=== PATIENT | female | born 1945 | race Caucasian/White ===

== ENCOUNTER 2019-08-08 08:59 | Outpatient (CLI) | payer MEDICARE ==
--- NOTE | 2019-08-08 11:38 | Diagnostic Imaging Report ---
PATIENT MR#: [id number] PATIENT PATIENT NAME: SUMAYA RUGGIERO DATE OF : 1945 REFERRING PHYSICIAN: Tonio Kapadia EXAM DATE: 08/08/2019 ACCESSION NUMBER: [id number] EXAM DESCRIPTION: US DUPLEX CAROTID BILATERAL Exam: bilateral carotid Doppler study. History: History of stenosis. Doppler interrogation and color Doppler imaging of the carotid systems bilaterally are submitted. On the right side some intimal thickening and plaque is identified especially at the bulb. The inter nal carotid artery peak systolic velocity measurements is 146 centimeters/second. The internal carotid artery common ca rotid artery ratio is 1.0. Doppler waveforms are normal configuration. Color Doppler imaging reveals no turbinates of flow. Flow is antegrade in vertebral artery. On the left side some intimal thickening and plaque is identified. The internal carotid artery peak systolic velocity measurements is 106 centimeters/second. The internal carotid artery common carotid artery ratio is 1 .7. Doppler waveforms are normal configuration. Color Doppler imaging reveals no turbinates of flow. Flow is an tegrade in vertebral artery. Impression: Intimal thickening and plaque is seen in both carotid systems. Mild to moderate stenosis noted bilaterally. Angiography may be necessary to further evaluate. Read by: Dr. Justin Pittman Transcribed by: Transcribed Date: Electronically signed by: Dr. Justin Pittman Date signed: 08/08/2019 11:37:49 AM
== END 2019-08-08 09:09 ==
LOC: RAD 08:59
PROVIDERS: ATTEND Family Medicine
DX: I65.23 Occlusion and stenosis of bilateral carotid arteries (principal)
CPT/HCPCS: 93880